=== PATIENT | male | born 1955 | race Caucasian/White ===

== ENCOUNTER → 2016-09-07 | Outpatient (CLI) | payer OTHER ==
[~2016-09-07] MED LIST: ATACAND PO; HCTZ PO; NAPROSYN500 MG PO; Oxycodone/Apap1 TA1 PO; ZITHROMAX250 MG PO
[2016-09-07 12:01] LABS: BASO % 0.4 % (0.0-1.0); EOS # 0.1 10*3/uL (0.0-0.4); EOS % 1.7 % (1.0-4.0); HEMOGLOBIN 12.4 g/dl (14.0-18.0); LYMPH # 1.4 10*3/uL (1.3-4.4); LYMPH % 29.8 % (27.0-41.0); MEAN CELL VOLUME 89.6 fl (80.0-94.0); MEAN CORPUSCULAR HGB CONC 33.5 g/dl (33.0-37.0); MEAN PLATELET VOLUME 10.7 fl (9.6-12.3); MONO # 0.3 10*3/uL (0.1-1.0); MONO % 6.9 % (3.0-9.0); NEUT # 2.9 10*3/uL (2.3-7.9); NEUT % 60.8 % (47.0-73.0); PLATELET COUNT AUTOMATED 98 10*3/uL (130-400); RED BLOOD COUNT 4.13 10*6/uL (4.50-5.90); RED CELL DISTRI WIDTH 12.7 % (0-14.5); WHITE BLOOD COUNT 4.8 10*3/uL (4.8-10.8)
[2016-09-07 12:04] LABS: URINE AMPHETAMINES < 1000 (1000ng/ml); URINE BARBITURATES < 200 (200ng/ml); URINE COCAINE < 300 (300ng/ml)
[2016-09-07 12:24] LABS: ALBUMIN 3.8 gm/dl (3.1-4.5); ALKALINE PHOSPHATASE 80 U/L (45-117); BILIRUBIN, DIRECT 0.2 mg/dL (0.0-0.2); BILIRUBIN, TOTAL 0.6 mg/dl (0.2-1.0); BUN 14 mg/dl (7-24); CARBON DIOXIDE 26 mmol/L (21-32); CHLORIDE 105 mmol/L (98-107); EST GLOM FILT AFRICAN AMERICAN > 60 ml/min; GLUCOSE 139 mg/dL (65-99); SGOT/AST 62 IU/L (3-35); SGPT/ALT 89 U/L (12-78); SODIUM 142 mmol/L (136-145); TOTAL PROTEIN 7.7 gm/dL (6.4-8.2)
[2016-09-08 16:06] LABS: HEPATITIS B SURFACE AB 006395 Non Reactive (.)
[2016-09-09 21:09] LABS: HEPATITIS C QUANTITATION 4320000 IU/mL (.)
== END | disposition home or self-care (01) ==
LOC: LAB 11:05
PROVIDERS: Internal Medicine Gastroenterology
DX: B18.2 Chronic viral hepatitis C (principal); R77.2 Abnormality of alphafetoprotein

== ENCOUNTER 2016-09-13 23:47 | Emergency (ER) | payer OTHER ==
[~2016-09-13] VITALS: Ht 177.8 cm; Wt 106.6 kg
[2016-09-14] MEDS ORDERED: ACETAMINOPHEN-H1 TA2 PO (00:05)
[2016-09-14] MEDS ORDERED: KENALOG 0.1%80 GM T (00:05)
[2016-09-14] MEDS ORDERED: Elocon 0.1% Cre15 GM T (00:06)
[2016-09-14] MEDS ORDERED: VITAMIN E1000 UNI1 PO (00:07)
[2016-09-14 01:05] LABS: BASO % 0.4 % (0.0-1.0); EOS # 0.1 10*3/uL (0.0-0.4); EOS % 2.8 % (1.0-4.0); HEMATOCRIT 31.9 % (42.0-52.0); HEMOGLOBIN 10.9 g/dl (14.0-18.0); LYMPH # 1.3 10*3/uL (1.3-4.4); LYMPH % 27.8 % (27.0-41.0); MEAN CELL VOLUME 90.1 fl (80.0-94.0); MEAN CORPUSCULAR HGB 30.8 pg (27.0-31.0); MEAN CORPUSCULAR HGB CONC 34.2 g/dl (33.0-37.0); MEAN PLATELET VOLUME 10.5 fl (9.6-12.3); MONO # 0.4 10*3/uL (0.1-1.0); MONO % 8.8 % (3.0-9.0); NEUT # 2.8 10*3/uL (2.3-7.9); NEUT % 59.8 % (47.0-73.0); PLATELET COUNT AUTOMATED 101 10*3/uL (130-400); RED BLOOD COUNT 3.54 10*6/uL (4.50-5.90); RED CELL DISTRI WIDTH 12.5 % (0-14.5); WHITE BLOOD COUNT 4.7 10*3/uL (4.8-10.8)
[2016-09-14 01:20] LABS: ALBUMIN 3.3 gm/dl (3.1-4.5); ALKALINE PHOSPHATASE 72 U/L (45-117); BILIRUBIN, TOTAL 0.3 mg/dl (0.2-1.0); BUN 16 mg/dl (7-24); CARBON DIOXIDE 26 mmol/L (21-32); CHLORIDE 104 mmol/L (98-107); EST GLOM FILT AFRICAN AMERICAN > 60 ml/min; GLUCOSE 212 mg/dL (65-99); SGOT/AST 44 IU/L (3-35); SGPT/ALT 65 U/L (12-78); SODIUM 140 mmol/L (136-145); TOTAL PROTEIN 6.5 gm/dL (6.4-8.2)
[2016-09-14] MEDS ORDERED: COZAAR50 M1 PO (06:10)
[2016-09-14] MEDS ORDERED: SYNTHROID25 MCG PO (06:11)
[2016-09-14] MEDS ORDERED: MILK THISTLE140 MG PO (13:34)
== END 2016-09-14 03:04 | disposition home or self-care (01) ==
LOC: ED 23:47
PROVIDERS: Physician Assistant
DX: K62.5 Hemorrhage of anus and rectum (principal); Z79.899 Other long term (current) drug therapy; Z88.7 Allergy status to serum and vaccine

== ENCOUNTER 2016-09-14 06:07 | Inpatient (IN) | payer OTHER ==
[~2016-09-14] VITALS: Ht 177.8 cm; Wt 107.1 kg
[2016-09-14] VITALS (10 sets, daily range): BP systolic 101–168; BP diastolic 54–86
--- NOTE | ~2016-09-14 | O ---
[place], [place] OPERATIVE NOTE [id number] UNIT #: [id number] ROOM: 503 DOCTOR: ASIM SUN,IRAIS BIRTHDATE: [birth year] DOS: HISTORY OF PRESENT ILLNESS: A 61-year-old patient who has presented with apparent history of colonic polypectomies multi site by Dr. Gonzalez 3 days ago and he has been experiencing bloody bowel movement yesterday, nocturnal evacuation gross blood. The patient had to come to the Emergency Room and we evaluated throughout the night and CT scan was done they could not find any active problem except blood in the stool. The patient was discharged; he goes home again at 4:00 a.m., he was awakened with cramp and bloody BM and back to the Emergency Room. I was called at 7:00 a.m. with his GI bleed. Arrangement was made for tap water enema and emergency endoscopy evaluation. PROCEDURE: Today's procedure as part of investigation is EGD and colonoscopy. PREMEDICATION: Versed and Diprivan. SCOPE: Olympus forward-viewing gastroscope Q10 video. REPORT: After putting the patient in the left lateral position and after application of lubricant to the scope, the scope was introduced; thereafter, under direct visualization, advanced through the length of esophagus without difficulty. Gastritis was noticed mild degree. Duodenal bulb, second and third part within normal. No gross pathology in upper GI was found. The patient extubated, tolerated procedure well. IMPRESSION: Mild gastritis, no active bleeding in upper gastrointestinal tract. PLAN: We are going to proceed with colonoscopy. IRAIS DAILEY MD CM:OPRECORD:OPERATIVE NOTE 1025 [id number] IRAIS DAILEY MD 09/14/16 1122 interface
--- NOTE | ~2016-09-14 | O ---
[place], [place] OPERATIVE NOTE NAME: PILY POWERS V UNIT #: [id number] ROOM: 503 DOCTOR: IRAIS DAILEY MD BIRTHDATE: [birth year] DOS: GASTROENDOSCOPIC REPORT The patient has presented with GI bleed, status post previous colonoscopy and polypectomies by Dr. Gonzalez few days ago. PROCEDURE: Today's procedure part of investigation is colonoscopy plus lavage. PREMEDICATION: Versed and Diprivan. SCOPE: Olympus forward-viewing colonoscope 10L video. REPORT: After putting the patient in the left lateral position and after application of lubricant to the rectal pouch and digital examination, scope was introduced. Thereafter, under direct visualization, I advanced through the length of colon without difficulty. Multiple sessile polyps throughout the length of colon were identified. Scattered diverticulosis seen. Presence of blood all the way to cecum was identified. Multiple sites of polypectomies were identified, eschar was noticed, specifically one about the hepatic flexure was suspected to have been the site of bleeding. No active bleed; however, but presence of large volume of blood in the colon was appreciated. Lavage was done. The patient extubated, tolerated procedure well. IMPRESSION: Lower gastrointestinal bleed from polypectomy site. PLAN AND DISCUSSION: This patient is going to be admitted over floor Sandostatin 50 mcg is going to be started 25 mcg continuous dose followup is going to be done. He is going to be kept on clear liquid, he is going to have daily H and H and he is going to be kept off aspirin anticoagulation and vitamin E, intake is going to be prevented and the clinical reassessment. Thank you very much indeed. [place], [place] OPERATIVE NOTE NAME: PILY POWERS V UNIT #: [id number] ROOM: 503 DOCTOR: IRAIS DAILEY MD BIRTHDATE: [birth year] IRAIS DAILEY MD CM:OPRECORD:OPERATIVE NOTE 1025 1123 IRAIS DAILEY MD 09/14/16 1123 interface
--- NOTE | ~2016-09-14 | CON ---
[place], [place] REPORT OF CONSULTATION [id number] UNIT #: [id number] ROOM: 503 DOCTOR: IRAIS DAILEY MD BIRTHDATE: [birth year] DOS: 09/14/2016 HISTORY OF PRESENT ILLNESS: A 61-year-old patient who has presented with chief complaint of melenic stool. The patient is status post EGD and colonoscopy 08/26/2016 with multiple polyp removal. The patient has had nocturnal cramp and several bloody BMs. The patient has returned to the Emergency Room. CT scan, lab results ____ addressed. He was discharged home. He goes home at 4:00 a.m. Again, he was awakened with a cramp of bloody BM. The patient had to be returning back to the ER. ER physician calls me with the distress on hand and arrangement was made for reassessment of EGD and colonoscopy. His white blood cell was 4, H and H of 12 and 37. Drug screening was negative. Basic metabolic panel, electrolyte balance, liver function tests, GOT and GPT 62 and 89 with known fatty liver. Ethanol level was negative. Hepatitis result: Hepatitis A antibody total negative. Alpha fetoprotein 8.4, positive. Hepatitis C virus negative. CBC differential, H and H dropped to [address] scan of the abdomen and pelvis was on findings of the liver as explained is fatty infiltrated. Liver is also mildly irregular contours consistent possibly with hepatocellular dysfunction or cirrhotic liver. No enhancing lesion could be seen, however. CBC differential was reassessed. INR 1.0. Comprehensive metabolic panel, liver function tests otherwise reassessed. PAST MEDICAL HISTORY: Fatty liver, hypertension, cirrhotic liver, GI bleed, multi colonic polyps. MEDICATIONS: List has been reviewed. His medication list includes ____, Kenalog, acetaminophen, and vitamin E. ALLERGIES: TETANUS VACCINE. PAST SURGICAL HISTORY: Teeth and tonsil. SOCIAL HISTORY: Nonsmoker, nonalcohol consumer. REVIEW OF SYSTEMS: HEENT: Denies double vision, blurred vision. RESPIRATORY: Denies acute shortness of breath. CARDIOVASCULAR: Denies chest pain. DIGESTIVE SYSTEM: Bloody BM several times and multiple visits to the ER. PHYSICAL EXAMINATION: VITAL SIGNS: Stable. HEENT: Head normocephalic, nontraumatic. Mouth and buccal mucosa benign. NECK: Supple. No thyromegaly. CHEST: Symmetric anatomy, equal expansion. No wheeze, no rhonchi. HEART: Normal sinus rhythm. No gallop, no murmur. ABDOMEN: Soft. No hepato-organomegaly. Bowel sounds present. EXTREMITIES: No cyanosis. No pedal edema. NEUROLOGIC: Alert, oriented to time, place, person. IMPRESSION: Gastrointestinal bleed, status post colonoscopy, status post [place], [place] REPORT OF CONSULTATION NAME: PILY POWERS V UNIT #: [id number] ROOM: [facility] DOCTOR: ASIM SUN,IRAIS BIRTHDATE: [birth year] polypectomy, ruling out ischemic colitis, ruling out rebleed from polyp site, ruling out bleeding from biopsy from upper gastrointestinal. PLAN AND DISCUSSION: EGD and colonoscopy. Other adjunctive diagnosis, fatty liver, possible cirrhosis. Workup in progress. IRAIS DAILEY MD CM:CONSTR:REPORT OF CONSULTATION 0948 09/14/16 1024 interface
[~2016-09-14 06:07] MED LIST changes: +ACETAMINOPHEN-H1 TA2 PO; +Elocon 0.1% Cre15 GM T; +KENALOG 0.1%80 GM T; +VITAMIN E1000 UNI1 PO
[2016-09-14] MEDS ORDERED: COZAAR50 M1 PO (06:10)
[2016-09-14] MEDS ORDERED: SYNTHROID25 MCG PO (06:11)
[2016-09-14 06:47] LABS: BASO % 0.3 % (0.0-1.0); EOS # 0.1 10*3/uL (0.0-0.4); EOS % 2.4 % (1.0-4.0); HEMATOCRIT 31.7 % (42.0-52.0); HEMOGLOBIN 10.6 g/dl (14.0-18.0); LYMPH # 1.3 10*3/uL (1.3-4.4); LYMPH % 22.3 % (27.0-41.0); MEAN CELL VOLUME 89.5 fl (80.0-94.0); MEAN CORPUSCULAR HGB 29.9 pg (27.0-31.0); MEAN CORPUSCULAR HGB CONC 33.4 g/dl (33.0-37.0); MEAN PLATELET VOLUME 10.5 fl (9.6-12.3); MONO # 0.6 10*3/uL (0.1-1.0); MONO % 9.9 % (3.0-9.0); NEUT # 3.7 10*3/uL (2.3-7.9); NEUT % 64.4 % (47.0-73.0); PLATELET COUNT AUTOMATED 117 10*3/uL (130-400); RED BLOOD COUNT 3.54 10*6/uL (4.50-5.90); RED CELL DISTRI WIDTH 12.7 % (0-14.5); WHITE BLOOD COUNT 5.8 10*3/uL (4.8-10.8)
[2016-09-14 06:57] LABS: PROTHROMBIN TIME 10.9 SECONDS (9.0-12.4)
[2016-09-14 07:02] LABS: ALBUMIN 3.5 gm/dl (3.1-4.5); ALKALINE PHOSPHATASE 68 U/L (45-117); BILIRUBIN, TOTAL 0.6 mg/dl (0.2-1.0); BUN 15 mg/dl (7-24); CARBON DIOXIDE 25 mmol/L (21-32); CHLORIDE 106 mmol/L (98-107); EST GLOM FILT AFRICAN AMERICAN > 60 ml/min; GLUCOSE 162 mg/dL (65-99); POTASSIUM 4.3 mmol/L (3.5-5.1); SGOT/AST 43 IU/L (3-35); SGPT/ALT 66 U/L (12-78); SODIUM 140 mmol/L (136-145); TOTAL PROTEIN 6.7 gm/dL (6.4-8.2)
[2016-09-14] MEDS ORDERED: MILK THISTLE140 MG PO (13:34)
[2016-09-15] VITALS: BP 110/48; BP 110/52
[2016-09-15 04:00] VITALS: BP 108/60; BP 108/62
[2016-09-15 05:59] LABS: HEMATOCRIT 27.2 % (42.0-52.0); HEMOGLOBIN 8.8 g/dl (14.0-18.0)
[2016-09-15 06:28] LABS: ALKALINE PHOSPHATASE 61 U/L (45-117); BILIRUBIN, TOTAL 0.6 mg/dl (0.2-1.0); BUN 9 mg/dl (7-24); CARBON DIOXIDE 29 mmol/L (21-32); CHLORIDE 106 mmol/L (98-107); CHOLESTEROL 148 mg/dL (<200); EST GLOM FILT AFRICAN AMERICAN > 60 ml/min; GLUCOSE 138 mg/dL (65-99); HDL CHOLESTEROL 33 mg/dl (40-60); LDL CHOLESTEROL 89 mg/dL (9-159); POTASSIUM 4.4 mmol/L (3.5-5.1); SGOT/AST 43 IU/L (3-35); SGPT/ALT 63 U/L (12-78); SODIUM 143 mmol/L (136-145); TOTAL PROTEIN 6.2 gm/dL (6.4-8.2); TRIGLYCERIDES 128 mg/dl (<150); VLDL CHOLESTEROL 26 mg/dL (6-40)
[2016-09-15 08:00] VITALS: BP 126/62
[2016-09-15 08:16] LABS: HEMOGLOBIN A1c 6.4 % (4.8-5.6)
[2016-09-15 12:00] VITALS: BP 137/61
[2016-09-15 16:00] VITALS: BP 130/60
[2016-09-15 20:00] VITALS: BP 122/51
[2016-09-16] VITALS (7 sets, daily range): BP systolic 120–160; BP diastolic 53–76
[2016-09-16 06:25] LABS: HEMATOCRIT 27.2 % (42.0-52.0); HEMOGLOBIN 8.8 g/dl (14.0-18.0)
[2016-09-16 17:58] LABS: HEMATOCRIT 29.9 % (42.0-52.0)
[2016-09-17] VITALS: BP 140/54
[2016-09-17 05:54] LABS: HEMATOCRIT 30.5 % (42.0-52.0); HEMOGLOBIN 9.9 g/dl (14.0-18.0)
[2016-09-17 08:00] VITALS: BP 150/58
[2016-09-17 12:00] VITALS: BP 158/62
== END 2016-09-17 14:00 | disposition home or self-care (01) | DRG 920 ==
LOC: ED 06:07 → SDC 09:48 → 5E 10:21
PROVIDERS: Emergency Medicine; Family Medicine Adult Medicine; Internal Medicine Gastroenterology
PROC: 0DJ08ZZ Inspection of Upper Intestinal Tract, Via Natural or Artificial Opening Endoscopic (ICD-10-PCS; principal; 2016-09-14)
PROC: 0DJD8ZZ Inspection of Lower Intestinal Tract, Via Natural or Artificial Opening Endoscopic (ICD-10-PCS; 2016-09-14)
DX: K91.840 Postprocedural hemorrhage of a digestive system organ or structure following a digestive system procedure (principal); K62.5 Hemorrhage of anus and rectum; K74.60 Unspecified cirrhosis of liver; I10 Essential (primary) hypertension; K29.70 Gastritis, unspecified, without bleeding; K63.5 Polyp of colon; Z88.7 Allergy status to serum and vaccine; E03.9 Hypothyroidism, unspecified; E66.9 Obesity, unspecified; Z68.33 Body mass index [BMI] 33.0-33.9, adult; D50.0 Iron deficiency anemia secondary to blood loss (chronic); R73.9 Hyperglycemia, unspecified

== ENCOUNTER → 2016-11-02 | Outpatient (CLI) | payer OTHER ==
[~2016-11-02] MED LIST changes: +COZAAR50 M1 PO; +MILK THISTLE140 MG PO; +SYNTHROID25 MCG PO
[2016-11-02 08:29] LABS: ALBUMIN 3.8 gm/dl (3.1-4.5); ALKALINE PHOSPHATASE 79 U/L (45-117); BILIRUBIN, DIRECT 0.1 mg/dL (0.0-0.2); BILIRUBIN, TOTAL 0.4 mg/dl (0.2-1.0); BUN 12 mg/dl (7-24); CARBON DIOXIDE 26 mmol/L (21-32); CHLORIDE 105 mmol/L (98-107); EST GLOM FILT AFRICAN AMERICAN > 60 ml/min; GLUCOSE 150 mg/dL (65-99); POTASSIUM 4.3 mmol/L (3.5-5.1); SGOT/AST 24 IU/L (3-35); SGPT/ALT 26 U/L (12-78); SODIUM 140 mmol/L (136-145); TOTAL PROTEIN 7.9 gm/dL (6.4-8.2)
[2016-11-02 08:45] LABS: BASO % 0.6 % (0.0-1.0); EOS # 0.1 10*3/uL (0.0-0.4); EOS % 2.8 % (1.0-4.0); HEMATOCRIT 38.1 % (42.0-52.0); HEMOGLOBIN 12.1 g/dl (14.0-18.0); LYMPH # 1.1 10*3/uL (1.3-4.4); LYMPH % 24.2 % (27.0-41.0); MEAN CELL VOLUME 89.2 fl (80.0-94.0); MEAN CORPUSCULAR HGB 28.3 pg (27.0-31.0); MEAN CORPUSCULAR HGB CONC 31.8 g/dl (33.0-37.0); MEAN PLATELET VOLUME 10.9 fl (9.6-12.3); MONO # 0.6 10*3/uL (0.1-1.0); MONO % 11.7 % (3.0-9.0); NEUT # 2.9 10*3/uL (2.3-7.9); NEUT % 60.3 % (47.0-73.0); PLATELET COUNT AUTOMATED 139 10*3/uL (130-400); RED BLOOD COUNT 4.27 10*6/uL (4.50-5.90); RED CELL DISTRI WIDTH 11.9 % (0-14.5); WHITE BLOOD COUNT 4.7 10*3/uL (4.8-10.8)
[2016-11-04 18:09] LABS: HEPATITIS C QUANTITATION HCV Not Detected IU/mL (.)
== END | disposition home or self-care (01) ==
LOC: LAB 07:07
PROVIDERS: Nurse Practitioner Family
DX: B18.2 Chronic viral hepatitis C (principal); B96.81 Helicobacter pylori [H. pylori] as the cause of diseases classified elsewhere

== ENCOUNTER → 2016-11-16 | Outpatient (CLI) | payer OTHER | END | disposition home or self-care (01) | LOC: US 08:05 | DX: R77.2 Abnormality of alphafetoprotein (principal) ==

== ENCOUNTER → 2017-01-25 | Outpatient (CLI) | payer OTHER ==
[2017-01-25 09:34] LABS: BASO % 0.4 % (0.0-1.0); EOS # 0.2 10*3/uL (0.0-0.4); EOS % 2.9 % (1.0-4.0); HEMATOCRIT 39.7 % (42.0-52.0); LYMPH # 1.5 10*3/uL (1.3-4.4); LYMPH % 28.2 % (27.0-41.0); MEAN CELL VOLUME 87.1 fl (80.0-94.0); MEAN CORPUSCULAR HGB 28.5 pg (27.0-31.0); MEAN CORPUSCULAR HGB CONC 32.7 g/dl (33.0-37.0); MEAN PLATELET VOLUME 10.3 fl (9.6-12.3); MONO # 0.4 10*3/uL (0.1-1.0); MONO % 7.4 % (3.0-9.0); NEUT # 3.1 10*3/uL (2.3-7.9); NEUT % 60.7 % (47.0-73.0); PLATELET COUNT AUTOMATED 107 10*3/uL (130-400); RED BLOOD COUNT 4.56 10*6/uL (4.50-5.90); RED CELL DISTRI WIDTH 12.9 % (0-14.5); WHITE BLOOD COUNT 5.2 10*3/uL (4.8-10.8)
[2017-01-25 10:09] LABS: ALBUMIN 3.7 gm/dl (3.1-4.5); ALKALINE PHOSPHATASE 72 U/L (45-117); BILIRUBIN, DIRECT < 0.1 mg/dL (0.0-0.2); BILIRUBIN, TOTAL 0.3 mg/dl (0.2-1.0); BUN 18 mg/dl (7-24); CARBON DIOXIDE 27 mmol/L (21-32); CHLORIDE 103 mmol/L (98-107); EST GLOM FILT AFRICAN AMERICAN > 60 ml/min; GLUCOSE 197 mg/dL (65-99); POTASSIUM 4.1 mmol/L (3.5-5.1); SGOT/AST 23 IU/L (3-35); SGPT/ALT 30 U/L (12-78); SODIUM 138 mmol/L (136-145); TOTAL PROTEIN 7.7 gm/dL (6.4-8.2)
[2017-01-28 13:05] LABS: HEPATITIS C QUANTITATION HCV Not Detected IU/mL (.)
== END | disposition home or self-care (01) ==
LOC: LAB 08:54
PROVIDERS: Nurse Practitioner Family
DX: B18.2 Chronic viral hepatitis C (principal); R77.2 Abnormality of alphafetoprotein

== ENCOUNTER → 2017-09-17 | Outpatient (CLI) | payer OTHER ==
[2017-09-17 14:24] LABS: BASO % 0.7 % (0.0-1.0); EOS # 0.2 10*3/uL (0.0-0.4); HEMATOCRIT 41.3 % (42.0-52.0); HEMOGLOBIN 13.5 g/dl (14.0-18.0); LYMPH # 1.5 10*3/uL (1.3-4.4); LYMPH % 27.1 % (27.0-41.0); MEAN CELL VOLUME 88.1 fl (80.0-94.0); MEAN CORPUSCULAR HGB 28.8 pg (27.0-31.0); MEAN CORPUSCULAR HGB CONC 32.7 g/dl (33.0-37.0); MEAN PLATELET VOLUME 10.7 fl (9.6-12.3); MONO # 0.5 10*3/uL (0.1-1.0); NEUT # 3.4 10*3/uL (2.3-7.9); NEUT % 59.7 % (47.0-73.0); PLATELET COUNT AUTOMATED 106 10*3/uL (130-400); RED BLOOD COUNT 4.69 10*6/uL (4.50-5.90); RED CELL DISTRI WIDTH 12.6 % (0-14.5); WHITE BLOOD COUNT 5.7 10*3/uL (4.8-10.8)
[2017-09-17 14:34] LABS: BILIRUBIN NEGATIVE (NEGATIVE); BLOOD NEGATIVE (NEGATIVE); CLARITY CLEAR (CLEAR); COLOR YELLOW (YELLOW); GLUCOSE NEGATIVE (NEGATIVE); KETONE NEGATIVE (NEGATIVE); LEUKO ESTERASE NEGATIVE (NEGATIVE); NITRITE NEGATIVE (NEGATIVE); SPECIFIC GRAVITY 1.015 (1.005-1.030); UROBILINOGEN 0.2 E.U./dl (0.2-1.0)
[2017-09-17 14:41] LABS: ALKALINE PHOSPHATASE 66 U/L (45-117); BUN 15 mg/dl (7-24); CHLORIDE 101 mmol/L (98-107); CHOLESTEROL 220 mg/dL (<200); CREATININE 1.03 mg/dL (0.70-1.30); GAMMA GLUTAMYL TRANSPEPTIDASE 45 U/L (15-85); HDL CHOLESTEROL 41 mg/dl (40-60); LDL CHOLESTEROL 151 mg/dL (9-159); POTASSIUM 4.2 mmol/L (3.5-5.1); SGOT/AST 19 IU/L (3-35); SGPT/ALT 30 U/L (12-78); SODIUM 138 mmol/L (136-145); T3 UPTAKE 37 % (31-39); TOTAL PROTEIN 8.2 gm/dL (6.4-8.2); TRIGLYCERIDES 141 mg/dl (<150); VLDL CHOLESTEROL 28 mg/dL (6-40)
[2017-09-17 14:46] LABS: THYROXINE (T4) TOTAL 10.3 ug/dl (4.5-12.1)
[2017-09-17 14:48] LABS: BACTERIA TRACE; EPITHELIAL CELLS 0-2; MUCOUS 1+
[2017-09-17 14:54] LABS: FERRITIN 130.1 ng/mL (22.0-322.0); VITAMIN D, 25-HYDROXY 19.7 ng/mL (30-100)
== END | disposition home or self-care (01) ==
LOC: LAB 13:53
PROVIDERS: Family Medicine
DX: Z12.5 Encounter for screening for malignant neoplasm of prostate (principal); R79.89 Other specified abnormal findings of blood chemistry; R53.83 Other fatigue; E55.9 Vitamin D deficiency, unspecified

== ENCOUNTER → 2019-03-08 | Outpatient (CLI) | payer MEDICARE | END | disposition home or self-care (01) | LOC: LAB 09:26 | DX: R97.20 Elevated prostate specific antigen [PSA] (principal) ==

== ENCOUNTER → 2019-12-24 | Outpatient (CLI) | payer MEDICARE ==
[2019-12-24 10:07] LABS: BASO % 0.4 % (0.0-1.0); EOS # 0.2 10*3/uL (0.0-0.4); EOS % 2.3 % (1.0-4.0); HEMATOCRIT 42.3 % (42.0-52.0); LYMPH # 1.4 10*3/uL (1.3-4.4); LYMPH % 20.3 % (27.0-41.0); MEAN CELL VOLUME 90.8 fl (80.0-94.0); MEAN CORPUSCULAR HGB 28.5 pg (27.0-31.0); MEAN CORPUSCULAR HGB CONC 31.4 g/dl (33.0-37.0); MEAN PLATELET VOLUME 10.9 fl (9.6-12.3); MONO # 0.7 10*3/uL (0.1-1.0); MONO % 9.6 % (3.0-9.0); NEUT # 4.7 10*3/uL (2.3-7.9); NEUT % 67.1 % (47.0-73.0); PLATELET COUNT AUTOMATED 144 10*3/uL (130-400); RED BLOOD COUNT 4.66 10*6/uL (4.50-5.90); RED CELL DISTRI WIDTH 12.6 % (0-14.5); RETICULOCYTE % 1.08 % (0.50-2.50); WHITE BLOOD COUNT 7.1 10*3/uL (4.8-10.8)
[2019-12-24 10:20] LABS: BACTERIA TRACE; BILIRUBIN NEGATIVE (NEGATIVE); BLOOD NEGATIVE (NEGATIVE); CLARITY CLEAR (CLEAR); COLOR YELLOW (YELLOW); EPITHELIAL CELLS 0-2; GLUCOSE NEGATIVE (NEGATIVE); KETONE NEGATIVE (NEGATIVE); LEUKO ESTERASE NEGATIVE (NEGATIVE); MUCOUS 1+; NITRITE NEGATIVE (NEGATIVE); UROBILINOGEN 0.2 E.U./dl (0.2-1.0)
[2019-12-24 10:38] LABS: ALBUMIN 4.1 gm/dl (3.1-4.5); ALKALINE PHOSPHATASE 65 U/L (45-117); BUN 14 mg/dl (7-24); CHLORIDE 105 mmol/L (98-107); CHOLESTEROL 192 mg/dL (<200); CPK 47 U/L (39-308); CREATININE 0.94 mg/dL (0.70-1.30); GAMMA GLUTAMYL TRANSPEPTIDASE 29 U/L (15-85); HDL CHOLESTEROL 43 mg/dl (40-60); IRON 93 ug/dL (65-175); LDL CHOLESTEROL 122 mg/dL (9-159); POTASSIUM 4.2 mmol/L (3.5-5.1); SGOT/AST 14 IU/L (3-35); SGPT/ALT 23 U/L (12-78); SODIUM 138 mmol/L (136-145); TOTAL IRON BINDING CAPACITY 317 ug/dl (250-450); TOTAL PROTEIN 7.8 gm/dL (6.4-8.2); TRIGLYCERIDES 135 mg/dl (<150); VLDL CHOLESTEROL 27 mg/dL (6-40)
[2019-12-24 11:11] LABS: FERRITIN 155.5 ng/mL (22.0-322.0); VITAMIN D, 25-HYDROXY 31.4 ng/mL (30-100)
== END | disposition home or self-care (01) ==
LOC: LAB 09:20
PROVIDERS: Family Medicine
DX: Z12.5 Encounter for screening for malignant neoplasm of prostate (principal); R79.89 Other specified abnormal findings of blood chemistry; R53.83 Other fatigue; E78.5 Hyperlipidemia, unspecified; E55.9 Vitamin D deficiency, unspecified; E11.9 Type 2 diabetes mellitus without complications; E53.8 Deficiency of other specified B group vitamins

== ENCOUNTER → 2020-02-29 | Outpatient (CLI) | payer MEDICARE | END | disposition home or self-care (01) | LOC: LAB 07:11 | PROVIDERS: ATTEND Urology | DX: R97.20 Elevated prostate specific antigen [PSA] (principal) ==

== ENCOUNTER → 2020-08-15 | Outpatient (CLI) | payer MEDICARE ==
[2020-08-15 07:51] LABS: BILIRUBIN Negative (Negative); BLOOD Negative (Negative); CLARITY Cloudy (Clear); COLOR Yellow (Yellow); GLUCOSE Negative (Negative); KETONE Trace (Negative); LEUKO ESTERASE Negative (Negative); NITRITE Negative (Negative); SPECIFIC GRAVITY 1.025 (1.001-1.030)
[2020-08-15 07:53] LABS: BASO % 0.4 % (0.0-1.0); EOS # 0.1 10*3/uL (0.0-0.4); EOS % 2.5 % (1.0-4.0); LYMPH # 1.3 10*3/uL (1.3-4.4); LYMPH % 23.6 % (27.0-41.0); MEAN CELL VOLUME 91.9 fl (80.0-94.0); MEAN CORPUSCULAR HGB 28.9 pg (27.0-31.0); MEAN CORPUSCULAR HGB CONC 31.4 g/dl (33.0-37.0); MEAN PLATELET VOLUME 10.8 fl (9.6-12.3); MONO # 0.5 10*3/uL (0.1-1.0); MONO % 9.1 % (3.0-9.0); NEUT # 3.7 10*3/uL (2.3-7.9); NEUT % 64.2 % (47.0-73.0); PLATELET COUNT AUTOMATED 149 10*3/uL (130-400); RED BLOOD COUNT 4.57 10*6/uL (4.50-5.90); RED CELL DISTRI WIDTH 12.7 % (0-14.5); RETICULOCYTE % 1.17 % (0.50-2.50); WHITE BLOOD COUNT 5.7 10*3/uL (4.8-10.8)
[2020-08-15 08:03] LABS: BACTERIA 1+; MUCOUS 3+; WBC 0-2 wbc/hpf (0-5)
[2020-08-15 08:16] LABS: ALBUMIN 3.8 gm/dl (3.1-4.5); ALKALINE PHOSPHATASE 61 U/L (45-117); BUN 17 mg/dl (7-24); CHLORIDE 107 mmol/L (98-107); CHOLESTEROL 170 mg/dL (<200); CREATININE 0.91 mg/dL (0.70-1.30); GAMMA GLUTAMYL TRANSPEPTIDASE 29 U/L (15-85); HDL CHOLESTEROL 39 mg/dl (40-60); IRON 56 ug/dL (65-175); LDL CHOLESTEROL 112 mg/dL (9-159); SGOT/AST 10 IU/L (3-35); SGPT/ALT 21 U/L (12-78); SODIUM 140 mmol/L (136-145); T3 UPTAKE 35 % (31-39); TOTAL IRON BINDING CAPACITY 352 ug/dl (250-450); TOTAL PROTEIN 7.5 gm/dL (6.4-8.2); TRIGLYCERIDES 93 mg/dl (<150); VLDL CHOLESTEROL 19 mg/dL (6-40)
[2020-08-15 10:10] LABS: FERRITIN 131.2 ng/mL (22.0-322.0); VITAMIN D, 25-HYDROXY 23.2 ng/mL (30-100)
== END | disposition home or self-care (01) ==
LOC: LAB 07:29
PROVIDERS: ATTEND Family Medicine
DX: E11.9 Type 2 diabetes mellitus without complications (principal); E78.5 Hyperlipidemia, unspecified; R79.89 Other specified abnormal findings of blood chemistry; R53.83 Other fatigue; E55.9 Vitamin D deficiency, unspecified; R74.8 Abnormal levels of other serum enzymes

== ENCOUNTER → 2021-02-21 | Outpatient (CLI) | payer MEDICARE ==
[2021-02-21 09:51] LABS: BASO % 0.3 % (0.0-1.0); EOS # 0.1 10*3/uL (0.0-0.4); EOS % 1.7 % (1.0-4.0); HEMATOCRIT 42.2 % (42.0-52.0); LYMPH # 1.4 10*3/uL (1.3-4.4); LYMPH % 22.4 % (27.0-41.0); MEAN CORPUSCULAR HGB 28.8 pg (27.0-31.0); MEAN PLATELET VOLUME 10.6 fl (9.6-12.3); MONO # 0.6 10*3/uL (0.1-1.0); MONO % 9.4 % (3.0-9.0); NEUT # 4.2 10*3/uL (2.3-7.9); NEUT % 65.7 % (47.0-73.0); PLATELET COUNT AUTOMATED 142 10*3/uL (130-400); RED BLOOD COUNT 4.69 10*6/uL (4.50-5.90); RED CELL DISTRI WIDTH 12.6 % (0-14.5); RETICULOCYTE % 1.13 % (0.50-2.50); WHITE BLOOD COUNT 6.4 10*3/uL (4.8-10.8)
[2021-02-21 09:54] LABS: BILIRUBIN Negative (Negative); BLOOD Negative (Negative); CLARITY Clear (Clear); COLOR Yellow (Yellow); GLUCOSE Negative (Negative); KETONE Negative (Negative); LEUKO ESTERASE Negative (Negative); NITRITE Negative (Negative); UROBILINOGEN 0.2 E.U./dl (0.0-1.0)
[2021-02-21 10:08] LABS: ALBUMIN 4.2 gm/dl (3.1-4.5); BUN 19 mg/dl (7-24); CHLORIDE 102 mmol/L (98-107); CHOLESTEROL 187 mg/dL (<200); CREATININE 0.84 mg/dL (0.70-1.30); GAMMA GLUTAMYL TRANSPEPTIDASE 27 U/L (15-85); IRON 81 ug/dL (65-175); POTASSIUM 4.1 mmol/L (3.5-5.1); SGOT/AST 18 IU/L (3-35); SGPT/ALT 32 U/L (12-78); SODIUM 135 mmol/L (136-145); TRIGLYCERIDES 92 mg/dl (<150)
[2021-02-21 10:17] LABS: ALKALINE PHOSPHATASE 70 U/L (45-117); LDL CHOLESTEROL 129 mg/dL (9-159); T3 UPTAKE 35 % (31-39); THYROXINE (T4) TOTAL 9.4 ug/dl (4.5-12.1); TOTAL IRON BINDING CAPACITY 340 ug/dl (250-450)
[2021-02-21 10:25] LABS: FERRITIN 143.6 ng/mL (22.0-322.0); VITAMIN D, 25-HYDROXY 35.2 ng/mL (30-100)
[2021-02-21 11:21] LABS: BACTERIA TRACE; WBC 0-2 wbc/hpf (0-5)
== END | disposition home or self-care (01) ==
LOC: LAB 09:14
PROVIDERS: ATTEND Family Medicine
DX: E55.9 Vitamin D deficiency, unspecified (principal); R79.89 Other specified abnormal findings of blood chemistry; R53.83 Other fatigue; R74.8 Abnormal levels of other serum enzymes

== ENCOUNTER → 2021-03-26 | Outpatient (CLI) | payer MEDICARE | END | disposition home or self-care (01) | LOC: COVID19 15:34 | PROVIDERS: ATTEND Internal Medicine | DX: U07.1 COVID-19 (principal) ==

== ENCOUNTER 2021-11-21 07:10 | Emergency (ER) | payer MEDICARE ==
[~2021-11-21] VITALS: Ht 175.2 cm; Wt 91.6 kg
[2021-11-21] MEDS ORDERED: PROAIR HFA8.5 GM INH (08:04)
[2021-11-21] MEDS ORDERED: MUCINEX ER600 MG PO (08:04)
[2021-11-21] MEDS ORDERED: PREDNISONE50 MG PO (08:04)
[2021-11-21] MEDS ORDERED: ZITHROMAX250 MG PO (08:04)
== END 2021-11-21 08:10 | disposition home or self-care (01) ==
LOC: ED 07:10
DX: J40 Bronchitis, not specified as acute or chronic (principal)